=== PATIENT | female | born 1980 | race Caucasian/White ===

== ENCOUNTER → 2024-08-21 | Outpatient (CLI) | payer SELFPAY ==
--- NOTE | 2024-08-21 16:43 | XR ---
EXAMINATION TYPE: XR chest 2V DATE OF EXAM: 08/21/2024 3:59 PM COMPARISON: None. 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 TECHNIQUE: Frontal and lateral views of the chest are obtained. FINDINGS: There is no focal air space opacity, pleural effusion, or pneumothorax seen. The cardiac silhouette size is within normal limits. The osseous structures are intact. IMPRESSION: No acute cardiopulmonary process. [facility], , 08/21/2024 4:41 PM
== END | disposition home or self-care (01) ==
LOC: RADXRMAIN 15:35
PROVIDERS: ATTEND Internal Medicine Infectious Disease
DX: Z02.1 Encounter for pre-employment examination (principal)
CPT/HCPCS: 71046

== ENCOUNTER → 2024-10-29 | Outpatient (CLI) | payer OTHER ==
--- NOTE | 2024-10-29 14:59 | US ---
EXAMINATION TYPE: US pelvis complete transvag DATE OF EXAM: 10/29/2024 COMPARISON: NONE CLINICAL INDICATION: Female, 44 years old with history of R10.2 PELVIC PAIN; Pt states pelvic bloatin g, discomfort, pt states history of fibroids TECHNIQUE: Transvaginal (TV) and Transabdominal (TA) . Transabdominal grayscale sonographic images of the pelvis were acquired. Transvaginal sonographic im ages were medically necessary to better assess the following anatomy: Uterus Doppler imaging: Not performed. FINDINGS: Date of LMP: 2 weeks ago EXAM MEASUREMENTS: Uterus: 12.5 x 4.9 x 5.5 cm Endometrial Stripe: 0.9 cm Right Ovary: 2.4 x 2.0 x 2.3 cm cm Left Ovary: 2.6 x 1.4 x 2.7 cm 1. Uterus: 12.5 x 4.9 x 5.5 cm. Two solid lesions within uterus 1) posterior body= 2.3 x 1.8 x 1.5 cm, 2) anterior body= 2.1 x 1.5 x 2.2 cm 2. Endometrium: wnl 3. Right Ovary: Dominant follicle= 1.5 x 1.2 x 1.2 cm 4. Left Ovary: Follicles 5. Bilateral Adnexa: wnl 6. Posterior cul-de-sac: wnl Switch Technician notes: Mixed solid and cystic mass posterior uterus= 14.3 x 8.4 x 9.3 cm- displacing ut erus and ovaries ?pedunculated fibroid vs. Other etiology, unable to visualize uterus and ovaries tra nsvaginally IMPRESSION: 1. Large mass measuring up to 14.3 cm situated behind the uterus and displacing it anteriorly. Exact etiology unclear. Possible large pedunculated fibroid versus pelvic neoplasm. Recommend further contr ast-enhanced CT assessment. 2. Follicular change in the ovaries including a 1.5 cm dominant follicle on the right. 3. A couple focal fibroids within the uterine body measuring up to 2.3 cm. [facility], Workstation: [email or web address], 10/29/2024 2:57 PM
== END | disposition home or self-care (01) ==
LOC: RADUSWWP 13:49
PROVIDERS: ATTEND Family Medicine
DX: D25.9 Leiomyoma of uterus, unspecified (principal); N85.8 Other specified noninflammatory disorders of uterus
CPT/HCPCS: 76830; 76856